=== PATIENT | female | born 1985 | race Caucasian/White ===

== ENCOUNTER 2024-03-21 10:54 | Emergency (ER) | payer SELFPAY ==
--- OUTSIDE RECORDS SUMMARY | 2024-03-21 10:57 | XMS REPORT | Continuity of Care Document ---
Author Name Unknown Address [address] [facility] [address] [place] [address] [facility] thconnect Address [address] [facility] [place] [address] Care Team Providers Care Cartridge Filler Name Role Phone PCP, PATIENT DOES NOT HAVE A Primary Care Physic taz Unavailable AZIZA MOJICA Attending Clinician Unavailab Aziza Hodge DO Attending Clinician AZIZA MOJICA Admitting Clinician Gail nielson Allergies, Adverse Reactions, Alerts Allergy Name Allergy Type Status Severity Reaction(s) Onset Date Inactive Date Treating Clinician Comments Source NO KNOWN ALLERGIE S Drug Class Active [facility] Social History Social Habit Start Date Stop Date Quantity Comments Source Sexual orientation U [facility] Sex Assigned At 1985 00:00:00 1985 00:00:[address] [facility] Smoking Status Start Date Stop Date Source Tobacco smoking consumption unknown [facility] Medications Ordered Medication Name Filled Medication Name Start Date Stop Date Current Medication? Ordering Clinician Indication Dosage Frequency Signature (SIG) Comments Components Source iopamidol (ISOVUE 370-500 mL) injection 81 mL 01-30 02:45: 00 01-30 02:45 :00 No [id number] 81mL 81 mL, Intravenou s, ONCE, 1 dose, On Fri01/29/23 at 2145, Routine [facility] ondansetron (ZOFRAN (PF)) injection 4 mg 01-30 00:45: 00 01-30 01:37 :00 No 4mg 4 mg, Slow IV Push, ONCE, 1 dose, On Fri01/29/23 at 1945, ANTONELLA [facility] morpHINE (4 mg/mL) injection 4 mg 01-30 00:45: 00 01-30 01:37 :00 No 4mg 4 mg, Slow IV Push, ONCE, 1 dose, On Fri01/29/23 at 1945, STAT [facility] Vital Signs Vital Name Observation Time Observation Value Comments S ource Systolic blood pressure 2023-01-30 03:00:00 119 mm[Hg] [facility] Diastolic blood pressure 2023-01-30 03:00:00 80 mm[Hg] [facility] Heart rate 2023-01-30 03:00:00 66 /min [facility] Respiratory rate 2023-01-30 03:00:00 16 /min [facility] Oxygen saturation in Arterial blood by Pulse oximetry 2023-01-30 03:00:00 98 /min [facility] Body temperature 2023-01-30 00:21:[address] [facility] Body height 2023-01-30 00:21:[address] [facility] Body weight 2023-01-30 00:21:[address] [facility] BMI 2023-01-30 00:21:00 27.44 kg/m2 [facility] Procedures Procedure Date / Time Performed Performing Clinicia n Source CT ABDOMEN PELVIS W CONTRAST 2023-01-30 01:54:[address] [facility] POCT TEST 2023-01-30 01:36:00 Sagrario Moj[address] [facility] LIPASE 2023-01-30 01:35:00 [facility]. METABOLIC PANEL ([id number]) 2023-01-30 01:35:[address] [facility] CBC WITH DIFF 2023-01-30 01:35:00 [facility] 2023-01-30 01:35:00 [facility] NOTICE OF PRIVACY PRACTICES 2023-01-29 23:51:38 Doctor Unassigned, Leith[place]Hatfield [facility] CONSENT/REFUSAL FOR DIAGNOSIS AND TREATMENT 2023-01-29 23:50:15 Doctor Unassigned, Leith[place] [facility] Encounters Start Date/Time End Date/Time Encounter Type Admission Type Attending Clinicians Care Facility Care Department Encounter ID Source 2023-01-29 19:23:00 2023-01-29 22:44:00 Emergency AZIZA GALLEGOS [facility] ERT [id number] [facility] 2023-01-29 19:23:00 2023-01-29 22:44:00 Emergency AZIZA GALLEGOS [facility] ERT [id number] [facility] 2023-01-29 19:23:00 2023-01-29 22:44:00 Emergency Aziza Mojica [facility] [id number] [facility] Results Test Description Test Time Test Comments Results Result Co mments Source SURGICAL PATHOLOGY [id number] 14:37:51* Test Item Value Reference Range Interpretation Comme nts DIAGNOSIS: (test code = 8200) (NOTE) A) Conization (L EEP) - EctocervixHigh grade squamous intraepithelial lesion (MERARI-3) - seemicroscopic. B) Conization (LEEP) - EndocervixHigh grade squamous intraepithelial lesion (MERARI-3) - seemicroscopic description.. MICROSCOPIC DESCRIPTION: (test code = 8210) (NOTE) A) This cervical conization demonstrates the transformation zone,and foci of high grade squamous intraepithelial lesion (CIN3).The dysplastic epithelium lacks maturation and is composed ofcells with crowded hyperchromatic nuclei. MERARI-3 extends intoendocervical glands and involves all tissue fragments. Focally,surface epithelium between MERARI-3 and the inked cauterizedendocervical margin has been denuded. Therefore, a clear margincannot be confirmed. No invasive carcinoma is identified. B) This specimen consists mostly of endocervical mucosa and showshigh grade squamous intraepithelial lesion (CIN3). The dysplasticepithelium lacks maturation and is composed of cells with crowdedhyperchromatic nuclei. Since most of the specimen consists ofendocervical tissue only, orientation cannot be certain. MERARI-3extends to one margin, but does not involve the blue inked tissueedge. No invasive carcinoma is identified. CLINICAL DATA: (test code = 8401) (NOTE) Not specified GROSS DESCRIPTION: (test code = 8220) (NOTE) A) SPECIMEN L ABELED: EctocervixSIZE/WEIGHT: 1.0x0.5x0.4 and 1.3x1.0x0.7 cm SPECIMEN COLOR: Shelton-redNUMBER OF TISSUE PIECES: 2SUBMITTED IN CASSETTE(S): [id number]: FormalinCOMMENTS:Irregularly shaped tissue fragment partially surfaced by pink-tanectocervix. Endocervical margin not grossly identified. Prior tosectioning margins inked blue. The larger tissue fragment has asuture on one edge designating 12. The larger fragment isconsistent with 11-1 o'clock cervix. The specimen is entirelysubmitted as follows: A1- smaller fragment, x3A2- larger fragment 11-12 o'clock, a6E6-akmkqi fragment 12-1 o'clock, x2 B) SPECIMEN LABELED: EndocervixSIZE/WEIGHT: 1.3x1.0x0.7 cm SPECIMEN COLOR: TanNUMBER OF TISSUE PIECES: 1SUBMITTED IN CASSETTE(S): [id number]: FormalinCOMMENTS:Cervical os grossly identified measuring 0.7 cm in diameter. Apparent deep endocervical margin inked blue. All remainingradial margins inked orange. Radially sectioned, entirelysubmitted as: B1 - quadrant 1 x2B2 - quadrant 2 x2B3 - quadrant 3 x2B4 - quadrant 4 x2 PATHOLOGIST: (test code = 8250) (NOTE) Roxanne Us M.D. Specimens processed and interpreted at [facility], [address] [place] [address], , CLIA: [id number] CPT: (test code = 8400) (NOTE) [id number] UNLESS O THERWISE INDICATED, ALL TESTING PERFORMED AT [facility] [address] [place] [address] CONTINUITY READER: MARA GOODWIN M.D. CLIA NUMBER [id number] [facility] [place]. [id number] SURGICAL PATHOLOGY [id number] 18:16:32* Test Item Value Reference Range Interpretation Comments DIAGNOSIS: (test code = 8200) (NOTE) A) Curettage - E ndocervixMildly atypical squamous epithelium with borderline changes/HPVeffect (see Microscopic Description). B) Biopsy - Cervix 11:00, 12:00Squamous intraepithelial lesion, grade indeterminate (seeComment). C) Biopsy - Cervix 10:00High-grade squamous intraepithelial lesion (MERARI 2). D) Biopsy - Cervix 4:00Benign squamous mucosa; no transformation zone present. E) Biopsy - Cervix 6:00Benign squamous mucosa; no transformation zone present. COMMENTS: (test code = 8205) (NOTE) (B)This difficul t to grade lesion is most likely HPV associated,and can be viewed as MERARI 1/MERARI 2. Some experts recommend thatpatients receive follow-up similar to a MERARI 2 diagnosis. The previously reported abnormal Pap (accession #[id number]) isreviewed. The atypical cells identified on the Pap slideessentially correlate with the biopsy findings. MICROSCOPIC DESCRIPTION: (test code = 8210) (NOTE) A) Benign endoce rvical epithelium is present. Squamousepithelium is also present with degenerative changes, however, there is nuclear enlargement and HPV effect. Fully developedhistologic features of CIN1 are not appreciated. This mayrepresent prominent reactive cellular changes or borderlinefeatures of early or resolving HPV effect. There is nodefinitive high grade lesion or malignancy. B) A minute fragment of cervical mucosa is present with HPVeffect, mildly crowded enlarged nuclei and increased nuclear tocytoplasmic ratios. There is some disorganization and lack ofmaturation, however, due to the limited nature and tangentialsectioning hinders definitive grading. C) Cervical mucosa shows disordered maturation with cytologicatypia and dysmaturational changes involving the basal andmid-portion of the squamous epithelium. No invasive carcinoma isidentified. D) The biopsy consists of benign squamous mucosa. Squamocolumnartransformation zone is not identified in the biopsy. There is noatypia, dysplasia, or malignancy. E) The biopsy consists of benign squamous mucosa. Squamocolumnartransformation zone is not identified in the biopsy. There is noatypia, dysplasia, or malignancy. CLINICAL DATA: (test code = 8401) (NOTE) Not specified GROSS DESCRIPTION: (test code = 8220) (NOTE) A) SPECIMEN LABE LED: EndocervixSIZE/WEIGHT: 1.7x1.0x0.1 cm AggregateSPECIMEN COLOR: TanNUMBER OF TISSUE PIECES: multipleSUBMITTED IN CASSETTE(S): [id number]: FormalinCOMMENTS:Mostly mucus. Filtered and entirely submitted. B) SPECIMEN LABELED: Cervix 11:00, 12:00SIZE/WEIGHT: 0.2x0.2x0.1 cm AggregateSPECIMEN COLOR: TanNUMBER OF TISSUE PIECES: multipleSUBMITTED IN CASSETTE(S): [id number]: FormalinCOMMENTS:Irregularly shaped tissue fragments. Filtered and entirelysubmitted. C) SPECIMEN LABELED: Cervix 10:00SIZE/WEIGHT: 0.4x0.3x0.1 cm SPECIMEN COLOR: TanNUMBER OF TISSUE PIECES: 1SUBMITTED IN CASSETTE(S): [id number]: FormalinCOMMENTS:Entirely submitted intact. D) SPECIMEN LABELED: Cervix 4:00SIZE/WEIGHT: 0.2x0.1x0.1 cm SPECIMEN COLOR: TanNUMBER OF TISSUE PIECES: 1SUBMITTED IN CASSETTE(S): [id number]: FormalinCOMMENTS:Entirely submitted intact. E) SPECIMEN LABELED: Cervix 6:00SIZE/WEIGHT: 0.4x0.3x0.1 cm SPECIMEN COLOR: TanNUMBER OF TISSUE PIECES: 1SUBMITTED IN CASSETTE(S): [id number]: FormalinCOMMENTS:Entirely submitted intact. PATHOLOGIST: (test code = 8250) (NOTE) Dariel Amor M.D., Board-certified in Anatomic and ClinicalPathology and Dermatopathology Specimens processed and interpreted at [facility], [address] [place] [address], , CLIA: [id number] CPT: (test code = 8400) (NOTE) [id number] UNLESS OTHERWISE INDICATED, ALL TESTING PERFORMED AT [facility] [address] [place] [address] CONTINUITY READER: MARA GOODWIN M.D. CLIA NUMBER [id number] [facility] [place]. [id number] COMP. METABOLIC PANEL (92730)2023-01-30 02:28:01* Test Item Value Reference Range Interpretation Comme nts NA (test code = 0816895565) 139 mmol/L 135-145 K (test code = 7697269500) 3.9 mmol/L 3.5-5.0 CL (test code = 0496600805) 105 mmol/L 98-108 CO2 TOTAL (test code = 3876513477) 24 mmol/L 23-31 AGAP (test code = 7464386567) 10 2-16 BUN (test code = 7929515901) 10 mg/dL 7-23 GLUCOSE (test code = 3753452877) 91 mg/dL 70-110 CREATININE (test code = 9556837045) 0.96 mg/dL 0.50-1.04 TOTAL BILI (test code = 6741539063) 0.5 mg/dL 0.1-1.1 CALCIUM (test code = 6142435976) 9.0 mg/dL 8.6-10.6 T PROTEIN (test code = 3987126506) 8.1 g/dL 6.3-8.2 ALBUMIN (test code = 3744474665) 4.6 g/dL 3.5-5.0 ALK PHOS (test code = 1122190126) 73 U/L 34-122 ALTv (test code = 1742-6) 24 U/L 5-35 AST(SGOT) (test code = 0840859489) 25 U/L 13-40 eGFR (test code = 3919993417) 66.1 mL/min/1.73m2 BELIA (test code = BELIA) Association of Glomerular Filtration Rate (GFR) and Staging of Kidney Disease* + + +- +| GFR (mL/min/1.73 m2) ?| With Kidney Damage ?| ?Without Kidney Damage+ ------+ ----+ ------+| ?>90 ?| ?Stage one ?| ? Normal ?+ -+ + -+| ?60-89 ?| ?Stage two ?| ? Decreased GFR ? + + +- +| ?30-59 ?| ?Stage three ?| ? Stage three ? + + +- +| ?15-29 ?| ?Stage four ? | ? Stage four ?+ -+ + -+| ?<15 (or dialysis) ? ?| ?Stage five ? | ? Stage five ?+ -+ + -+ *Each stage assumes the associated GFR level has been in effect for at least three months. ?Stages 1 to 5, with or without kidney disease, indicate chronic kidney disease. Notes: Determination of stages one and two (with eGFR >59mL/min/1.73 m2) requires estimation of kidney damage for at least three months as defined by structural or functional abnormalities of the kidney, manifested by either:Pathological abnormalities or Markers of kidney damage (including abnormalities in the composition of the blood or urine or abnormalities in imaging tests). [facility] 02:27:41* Test Item Value Reference Range Interpretation Comme nts LIPASE (test code = 5755246952) 88 U/L 0-220 Lab Interpretation (test cod e = 73083-1) Normal [facility] WITH [id number] 02:13:20* Test Item Value Reference Range Interpretation Comme nts WBC (test code = 6690-2) 6.15 See_Comment [Automated [employer]] The system which generated this result transmitted reference range: 4.30 - 11.10 10*3/?L. The reference range was not used to interpret this result as normal/abnormal. RBC (test code = 789-8) 4.47 See_Comment [Automated [employer]] The system which generated this result transmitted reference range: 3.93 - 5.25 10*6/?L. The reference range was not used to interpret this result as normal/abnormal. HGB (test code = 718-7) 14.4 g/dL 11.6-15.0 HCT (test code = 4544-3) 41.2 % 35.7-45.2 MCV (test code = 787-2) 92.2 fL 80.6-95.5 MCH (test code = 785-6) 32.2 pg 25.9-32.8 MCHC (test code = 786-4) 35.0 g/dL 31.6-35.1 RDW-SD (test code = 19300-2) 39.2 fL 39.0-49.9 RDW-CV (test code = 788-0) 11.6 % 12.0-15.5 L PLT (test code = 777-3) 349 See_Comment [Automated [employer]] The system which generated this result transmitted reference range: 166 - 358 10*3/?L. The reference range was not used to interpret this result as normal/abnormal. MPV (test code = 58800-0) 10.5 fL 9.5-12.9 NRBC/100 WBC (test code = 9812416033) 0.0 See_Comment [Automated me ssage] The system which generated this result transmitted reference range: 0.0 - 10.0 /100 WBCs. The reference range was not used to interpret this result as normal/abnormal. NRBC x10^3 (test code = 9050677977) See_Comment [Automated messa ge] The system which generated this result transmitted reference range: 10*3/?L. The reference range was not used to interpret this result as normal/abnormal. GRAN MAT (NEUT) % (test code = 770-8) 65.3 % IMM GRAN % (test code = 7785270618) 0.30 % LYMPH % (test code = 736-9) 23.9 % MONO % (test code = 5905-5) 8.9 % EOS % (test code = 713-8) 0.8 % BASO % (test code = 706-2) 0.8 % GRAN MAT x10^3(ANC) (test code = 5252842267) 4.01 10*3/uL 1.88-7.09 IMM GRAN x10^3 (test code = 4541012419) 0.00-0.06 LYMPH x10^3 (test code = 731-0) 1.47 10*3/uL 1.32-3.29 MONO x10^3 (test code = 742-7) 0.55 10*3/uL 0.33-0.92 EOS x10^3 (test code = 711-2) 0.05 10*3/uL 0.03-0.39 BASO x10^3 (test code = 704-7) 0.05 10*3/uL 0.01-0.07 Lab Interpretation (test code = 99914-7) Abnormal [facility] [id number] 01:36:00* Test Item Value Reference Range Interpretation Comme nts POCT PREG (test code = 1605) Negative On board controls acceptable with C Line (test code = 3574) Yes POCT PREG LOT # (test code = 3575) [id number] POCT PREG TEST DATE ( test code = 3576) 05/14/2024 Lab Interpretation (test cod e = 86980-1) Normal [facility] TEST, THINPREP, [id number] 23:11:55 * Test Item Value Reference Range Interpretation Comments SOURCE: (test code = 8001) Cervical/Endoc ervical SLIDES: (test code = 8011) 2 LMP: (test code = 8021) 12/10/2022 SPECIMEN ADEQUACY: (test code = 21980) (NOTE) Satisfactory for evaluation. Endocervical cells/transformation zone component present. INTERPRETATION: (test code = 42540) ASC H/EPITH. ABNORMALITY; SEE BELOW A -- ---- EPITHELIAL CELL ABNORMALITY Atypical squamous cells, cannot exclude HSIL (ASC-H) ---- OTHER COMMENTS: (test code = 8081) (NOTE) Background ma terial consistent with lubricant is present, whichinterferes with specimen processing.Interpreted using an alternate method of processing. This testwas developed and its performance characteristics determined [email or web address] It has not been cleared orapproved by the FDA. The laboratory is regulated under CLIA asqualified to perform high-complexity testing. This test is usedfor clinical purposes. It should not be regarded asinvestigational or for research. DYED RAW STOCK BLOWER FEEDER: (test code = 8101) AASHISH Fischer(ASCP)I AC QC TECHNOLOGIST: (test code = 8111) Brayden EscobarSCT( CP),IAC PATHOLOGIST INTERPRETATION BY: (test code = 8122) Alaina Maria M.D. LOCATION: (test code = 82770) (NOTE) Specimens proces sed and interpreted at [facility], [address] [place], [place] [address], , CLIA: [id number] CPT: (test code = 8140) (NOTE) 73133, 94937 UNL ESS OTHERWISE INDICATED, COMPUTER AIDED AND DYED RAW STOCK BLOWER FEEDER SCREENING PERFORMED. The Pap test is a screening test with an inherent, but low probability of error. Your patient should be reminded to consult you immediately if she experiences any suspicious signs or symptoms, regardless of her Pap test result. An alternate report format containing images or consolidated prior Pap history is available as applicable. HPV HIGH RISK WITH GENOTYPE, [id number] 17:27:32* Test Item Value Reference Range Interpretation Comme nts HPV HIGH RISK INTERP (test code = 71191) POSITIVE NEGATIVE A HPV 16 (test code = 21040) POSITIVE A HPV 18 (test code = 36410) NEGATIVE HPV, HR, OTHER GENOTYPES (test code = 02621) NEGATIVE Testing methodol ogy is real-time PCR utilizing hydrolysis probes with the Wendi Calvin 4800 system. The test individually detects genotypes 16 and 18, as well as the other 12 high risk types (31,33,35,39,45,51,52,56 ,58,59,66,68). The expected result is negative. A negative result does not rule out the presence of HPV not included in the genotype set, a low level of infection or specimen sampling error. UNLESS OTHERWISE INDICATED, ALL TESTING PERFORMED AT [facility]. [address] [place] [address] CONTINUITY READER: MARA GOODWIN M.D. CLIA NUMBER [id number] [facility]. [id number] VAGINAL PATHOGENS DNA [id number] 14:39:28* Test Item Value Reference Range Interpretation Comme nts YARI SPECIES (test code = 45402) NEGATIVE NEGATIVE G. VAGINALIS (test code = 09070) NEGATIVE NEGATIVE T. VAGINALIS (test code = 15985) NEGATIVE NEGATIVE Note: The [facility] ir VPIII Microbial Identification Testis a DNA probe test intended for use in the detectionand identification of Yari species, Gardnerellavaginalis and Trichomonas vaginalis nucleic acid. UNLESS OTHERWISE INDICATED, ALL TESTING PERFORMED AT [facility] [address] [place] [address] CONTINUITY READER: MARA GOODWIN M.D. [place] NUMBER [id number] [facility] [place]. [id number] COMPREHENSIVE METABOLIC [id number] 04:10:37* Test Item Value Reference Range Interpretation Comme nts GLUCOSE (test code = 2217) 106 MG/DL 70-99 H BUN (test code = 2208) 14 MG/DL 6-20 CREATININE (test code = 2214) 1.31 MG/DL 0.60-1.30 H eGFR (2020 CKD-EPI) (test code = 31837) 54 ML/MIN/1.73 >60 L The NKF-ASN Taskforce recommends use of Cystatin C to confirm eGFR inadults at risk for CKD. [facility] offers eGFR with Cystatin C-Creatinineusing the 2020 CKD-EPI eGFR_creat-cystat equation (order code 3057) toincrease the accuracy of estimated GFR. For more information, contactyour account group supervisor or see announcement [email or web address] CALC BUN/CREAT (test code = 2235) 11 RATIO 6-28 SODIUM (test code = 2231) 142 MEQ/L 133-146 POTASSIUM (test code = 2228) 4.0 MEQ/L 3.5-5.4 CHLORIDE (test code = 2215) 105 MEQ/L 95-107 CARBON DIOXIDE (test code = 2206) 23 MEQ/L 19-31 CALCIUM (test code = 2209) 9.8 MG/DL 8.5-10.5 PROTEIN, TOTAL (test code = 2229) 7.5 G/DL 6.1-8.3 ALBUMIN (test code = 2201) 4.8 G/DL 3.5-5.2 CALC GLOBULIN (test code = 2240) 2.7 G/DL 1.9-3.7 CALC A/G RATIO (test code = 2234) 1.8 RATIO 1.0-2.6 BILIRUBIN, TOTAL (test code = 2207) <0.2 MG/DL See_Comment [Automated me ssage] The system which generated this result transmitted reference range: <=1.2. The reference range was not used to interpret this result as normal/abnormal. ALKALINE PHOSPHATASE (test code = 2204) 76 U/L 40-114 AST (test code = 2218) 20 U/L 9-40 ALT (test code = 2219) 17 U/L 5-40 LIPID [id number] 04:10:37* Test Item Value Reference Range Interpretation Comme nts CHOLESTEROL (test code = 2210) 210 MG/DL <200 H TRIGLYCERIDES (test code = 2232) 160 MG/DL <150 H HDL CHOLESTEROL (test code = 2220) 56 MG/DL >39 CALC LDL CHOL (test code = 2237) 126 MG/DL <100 H NOTE: CALCULATED LDL IS BASED ON DULCE-MONDRAGON METHOD WHICHINCLUDES ADJUSTABLE TRIGLYCERIDE:VLDL CHOLESTEROL RATIO.THIS FACTOR VARIES BY MEASURED TRIGLYCERIDE AND NON-HDLCHOLESTEROL CONCENTRATIONS WITH INCREASED CALCULATED LDL SEENIN HIGHER TRIGLYCERIDE OR LOWER NON-HDL SPECIMENS. FOR MOREINFORMATION, SEE CLIENT ANNOUNCEMENT AT [email or web address] RISK RATIO LDL/HDL (test code = 2238) 2.25 RATIO <3.22 HEMOGLOBIN [id number] 03:28:36* Test Item Value Reference Range Interpretation Comme nts HEMOGLOBIN A1c (test code = 76335) 4.9 % 4.2-5.6 CBC W/AUTO DIFF WITH [id number] 02:19:23* Test Item Value Reference Range Interpretation Comme nts WBC (test code = 1001) 6.1 K/UL 3.5-11.0 RBC (test code = 1002) 4.20 M/UL 3.80-5.40 HEMOGLOBIN (test code = 1003) 13.7 G/DL 11.5-15.5 HEMATOCRIT (test code = 1004) 38.6 % 34.0-45.0 MCV (test code = 1005) 91.9 fL 80.0-99.0 MCH (test code = 1006) 32.6 PG 25.0-33.0 MCHC (test code = 1007) 35.5 G/DL 31.0-36.0 RDW (test code = 1038) 11.7 % 11.5-15.0 NEUTROPHILS (test code = 1008) 67.4 % LYMPHOCYTES (test code = 1010) 20.8 % MONOCYTES (test code = 1011) 10.2 % EOSINOPHILS (test code = 1012) 0.7 % BASOPHILS (test code = 1013) 0.7 % IMMATURE GRANULOCYTES (test code = 1036) 0.2 % NUCLEATED RBCS (test code = 1065) 0.0 /100 WBC'S See_Comment [Automated messa ge] The system which generated this result transmitted reference range: 0.0. The reference range was not used to interpret this result as normal/abnormal. PLATELET COUNT (test code = 1015) 363 K/UL 130-400 ABSOLUTE NEUTROPHILS (test code = 1066) 4.10 K/UL 1.50-7.50 ABSOLUTE LYMPHOCYTES (test code = 1067) 1.26 K/UL 1.00-4.00 ABSOLUTE MONOCYTES (test code = 1068) 0.62 K/UL 0.20-1.00 ABSOLUTE EOSINOPHILS (test code = 1040) 0.04 K/UL 0.00-0.50 ABSOLUTE BASOPHILS (test code = 1069) 0.04 K/UL 0.00-0.20 ABS IMMATURE GRANULOCYTES (test code = 1020) 0.01 K/UL 0.00-0.10 ABS NUCLEATED RBCS (test code = 48280) 0.00 K/UL 0.00-0.11"
[2024-03-21] MEDS ORDERED: IBUPROFEN 200 MG TAB PO ONE (11:37)
[2024-03-21] MEDS ORDERED: HYDROCODONE/APAP 5/325 MG TAB ONE (11:37)
[2024-03-21] MEDS ORDERED: IBUPROFEN 400 MG TAB ONE (11:38)
--- NOTE | 2024-03-21 12:05 | RAD REPORT ---
EXAMINATION: XR Foot Right 3 View CLINICAL INDICATION: Female, 38 years old. [facility] MAIN PAIN Bed: TECHNIQUE: 3 view radiographs of the right foot were obtained. COMPARISON: No prior exam. FINDINGS: No evidence of fracture or dislocation. Normal alignment. No evidence of arthropathy or oth er focal bone lesion. Soft tissues are unremarkable. Small calcaneal spur. He. No significant degenerative changes. IMPRESSION: No acute osseous abnormalities.
--- NOTE | 2024-03-21 12:06 | RAD REPORT ---
EXAMINATION: XR Ankle Right 3 View CLINICAL INDICATION: Female, 38 years old. [facility] MAIN PAIN Bed: TECHNIQUE: 3 view radiographs of the right ankle were obtained. COMPARISON: No prior exam. FINDINGS: No bone or joint abnormality seen. Small calcaneal spur. No suspicious soft tissue abnormality. IMPRESSION: No acute osseous abnormalities.
--- NOTE | 2024-03-21 12:25 | EDPHYS ---
Physician Documentation [facility] Name: Елена Harris Age: 38 yrs Sex: Female : 1985 Arrival Date: 03/21/2024 Time: 10:54 Bed 13 Private MD: ED Physician Cameron Black HPI: 03/21 12:23 This 38 yrs old Female presents to ER via Wheelchair with complaints of Ankle Injury. kb 12:23 Pt is a 38 year old female who presents for ankle and foot pain that started after a kb fall last night. States she twisted her ankle while walking. Denies any other injuries. . Historical: - Allergies: 11:07 No Known Allergies; aa5 - PMHx: 11:07 Asthma; aa5 - PSHx: 11:07 tubal ligation (Asthma); aa5 - Immunization history:: Adult Immunizations unknown. - Infectious Disease History:: Denies. - Social history:: Smoking status: Patient denies any tobacco usage or history of. ROS: 12:22 Constitutional: As per HPI kb Exam: 12:22 Constitutional: This is a well developed, well nourished patient who is awake, alert, kb and in no acute distress. Head/Face: Normocephalic, atraumatic. ENT: Moist Mucous membranes Cardiovascular: Regular rate Respiratory: Respirations even and unlabored. No increased work of breathing. Talking in full sentences Skin: Warm, dry with normal turgor. Normal color. Neuro: Awake and alert, GCS 15, oriented to person, place, time, and situation. 12:22 Musculoskeletal/extremity: Extremities: grossly normal except: noted in the anterior aspect of right ankle and dorsum of right foot: pain, tenderness, ROM: intact in all extremities, Circulation is intact in all extremities. Sensation intact. Weight bearing: can bear weight with assistance only, Vital Signs: 11:08 BP 142 / 83; Pulse 110; Resp 18 S; Temp 97.5(TE); Pulse Ox 100% on R/A; Weight 67.13 kg aa5 (R); Height 5 ft. 2 in. (R); 11:08 Body Mass Index 27.07 (67.13 kg, 157.48 cm) aa5 MDM: 10:57 Medical Screening Exam initiated kb 12:22 Differential diagnosis: fracture, sprain. Data reviewed: vital signs, nurses notes. kb Historians other than the Patient: Spouse/Significant Other: spouse. Counseling: I had a detailed discussion with the patient and/or guardian regarding the historical points, exam findings, and any diagnostic results supporting the discharge/admit diagnosis, radiology results, the need for outpatient follow up, a orthopedic surgeon, to return to the emergency department if symptoms worsen or persist or if there are any questions or concerns that arise at home. 03/21 11:03 Order name: Ankle Right 3 View XRAY; Complete Time: 12:12 kb 03/21 11:03 Order name: Foot Right 3 View XRAY; Complete Time: 12:12 kb 03/21 12:23 Order name: Romel Wrap; Complete Time: 12:49 kb 03/21 12:23 Order name: Crutches; Complete Time: 12:49 kb Administered Medications: 11:43 Drug: HYDROcodone-acetaminophen PO 5 mg-325 mg 1 tabs PO once Route: PO; aa5 12:45 Follow up: Response: No adverse reaction aa5 11:43 Drug: Ibuprofen PO 600 mg PO once Route: PO; aa5 12:45 Follow up: Response: No adverse reaction aa5 Disposition Summary: 03/21/24 12:24 Discharge Ordered Notes: Location: Home kb Condition: Stable kb Diagnosis - Sprain of ankle kb Followup: kb - With: Emergency Department - When: As needed - Reason: Worsening of condition Followup: kb - With: Private Physician - When: 2 - 3 days - Reason: Recheck today's complaints, Continuance of care, Re-evaluation by your physician Discharge Instructions: - Discharge Summary Sheet kb - Ankle Sprain, [id number] kb Forms: - Medication Reconciliation Form kb - Antibiotic Education kb - Prescription Opioid Use kb - Patient Portal Instructions kb - Leadership Thank You Letter kb Prescriptions: - Diclofenac Sodium 75 mg Oral tablet, delayed release (enteric coated) - take 1 tablet ORAL route 2 times per day As needed; 30 tablet; Refills: 0, kb Product Selection Permitted Signatures: Dispatcher [employer] Melany Han, SO-C SO-Ashley Lindquist, RN RN aa5 Corrections: (The following items were deleted from the chart) 11: 11:04 Ankle Right 3 View+RAD.RAD.BRZ ordered. ABBYMS EDMS 11:04 11:04 Foot Right 3 View+RAD.RAD.BRZ ordered. EDMS EDMS
--- NOTE | 2024-03-21 12:25 | ER ---
Nurse's Notes [facility] Name: Елена Harris Age: 38 yrs Sex: Female : 1985 Arrival Date: 03/21/2024 Time: 10:54 Bed 13 Private MD: Diagnosis: Sprain of ankle Presentation: 03/21 11:08 Chief complaint: Patient states: running and stepped off a curve twisting right ankle aa5 last night. Coronavirus screen: At this time, the client does not indicate any symptoms associated with coronavirus-19. Ebola Screen: Patient denies travel to an Ebola-affected area in the 21 days before illness onset. Initial Sepsis Screen: Does the patient meet any 2 criteria? No. Patient's initial sepsis screen is negative. Does the patient have a suspected source of infection? No. Patient's initial sepsis screen is negative. Risk Assessment: Do you want to hurt yourself or someone else? Patient reports no desire to harm self or others. Onset of symptoms was March 20, 2024. 11:08 Acuity: JYOTI 4 aa5 11:08 Method Of Arrival: Wheelchair aa5 Historical: - Allergies: 11:07 No Known Allergies; aa5 - PMHx: 11:07 Asthma; aa5 - PSHx: 11:07 tubal ligation (Asthma); aa5 - Immunization history:: Adult Immunizations unknown. - Infectious Disease History:: Denies. - Social history:: Smoking status: Patient denies any tobacco usage or history of. Screenin:10 [facility] ED Fall Risk Assessment (Adult) History of falling in the last 3 months, aa5 including since admission Yes- single mechanical fall (1 pt) Confusion or Disorientation No (0 pts) Intoxicated or Sedated No (0 pts) Impaired Gait No (0 pts) Mobility Assist Device Used No (0 pt) Altered Elimination No (0 pt) Score/Fall Risk Level 0 - 2 = Low Risk Oriented to surroundings, Maintained a safe environment, Educated pt \T\ family on fall prevention, incl call for assistance when getting out of bed. Abuse screen: Denies threats or abuse. Nutritional screening: No deficits noted. Tuberculosis screening: No symptoms or risk factors identified. Assessment: 11:10 General: Appears uncomfortable, Behavior is calm, cooperative. Pain: Complains of pain aa5 in dorsum of right foot and right ankle. Neuro: Level of Consciousness is awake, alert, obeys commands, Oriented to person, place, time, situation. Cardiovascular: Patient's skin is warm and dry. Respiratory: Airway is patent Respiratory effort is even, unlabored, Respiratory pattern is regular, symmetrical. GI: No signs and/or symptoms were reported involving the gastrointestinal system. : No signs and/or symptoms were reported regarding the genitourinary system. EENT: No signs and/or symptoms were reported regarding the EENT system. Derm: Skin is pink, warm \T\ dry. Musculoskeletal: Reports pain in right ankle and right foot. 12:45 Reassessment: Patient is alert, oriented x 3, equal unlabored respirations, skin aa5 warm/dry/pink. Vital Signs: 11:08 BP 142 / 83; Pulse 110; Resp 18 S; Temp 97.5(TE); Pulse Ox 100% on R/A; Weight 67.13 kg aa5 (R); Height 5 ft. 2 in. (R); 11:08 Body Mass Index 27.07 (67.13 kg, 157.48 cm) aa5 ED Course: 10:56 Patient arrived in ED. mg5 10:57 [facility] Good[facility]C [facility] kb 10:57 Cameron Black MD is Attending Physician. kb 11:06 Arm band placed on. aa5 11:06 Patient has correct armband on for positive identification. Bed in low position. Call aa5 light in reach. Side rails up X 1. Adult w/ patient. 11:09 Triage completed. aa5 11:09 Ashley Asher, RN is Primary Nurse. aa5 11:27 Ankle Right 3 View XRAY In Process Unspecified. EDMS 11:27 Foot Right 3 View XRAY In Process Unspecified. EDMS 12:26 No provider procedures requiring assistance completed. aa5 12:45 Patient did not have IV access during this emergency room visit. aa5 12:45 Crutch training done. Romel wrap to right ankle. aa5 Administered Medications: 11:43 Drug: HYDROcodone-acetaminophen PO 5 mg-325 mg 1 tabs PO once Route: PO; aa5 12:45 Follow up: Response: No adverse reaction aa5 11:43 Drug: Ibuprofen PO 600 mg PO once Route: PO; aa5 12:45 Follow up: Response: No adverse reaction aa5 Medication: 12:24 VIS not applicable for this client. aa5 Outcome: 12:24 Discharge ordered by . kallie 12:45 Discharged to home via wheelchair, with crutches, with significant other, aa5 12:45 Condition: stable 12:45 Discharge instructions given to patient, significant other, Instructed on discharge instructions, follow up and referral plans. medication usage, Demonstrated understanding of instructions, follow-up care, medications, Prescriptions given X 1, 12:49 Patient left the ED. aa5 Signatures: Dispatcher [employer] EDMS Melany Goodwin, SKIN CARE CONSULTANT-C SO-Ashley Lindquist, RN RN aa5 Amada Ratliff mg5
[2024-03-21 12:53] VITALS: BP 142/83; TEMP 97.5; O2SAT 100
== END 2024-03-21 12:49 | disposition home or self-care (01) ==
LOC: ER 10:54
DX: S93.401A Sprain of unspecified ligament of right ankle, initial encounter (principal)
CPT/HCPCS: 99283

== ENCOUNTER 2025-03-06 03:41 | Emergency (ER) | payer SELFPAY ==
[2025-03-06] MEDS ORDERED: NA CHLORIDE 0.9% 1,000 ML ONE (04:00)
[2025-03-06] MEDS ORDERED: ONDANSETRON 4 MG/2 ML VIAL ONE (04:00)
[2025-03-06 04:19] LABS: Absolute Lymphocytes (CBC) 0.6 K/uL (0.7-4.9); Hematocrit 39.4 % (36.0-45.0); Hemoglobin 13.6 g/dL (12.0-15.0); MCH 31.5 pg (27.0-35.0); MCHC 34.5 g/dL (32.0-36.0); MCV 91.4 fL (80-100); MPV 8.6 fL (7.6-11.3); Nucleated RBC Absolute Count 0.0 (0-0); Nucleated Red Blood Cells % 0.0 % (0-0); RBC Red Blood Cell Count 4.32 M/uL (3.86-4.86); White Blood Count 6.40 thou/uL (4.3-10.9)
[2025-03-06 04:24] LABS: Sqamous Epithelial <5 /HPF (None Seen); Urine Crystals Unidentified Few /HPF (None Seen); Urine Culture Reflex Order REFLEXED; Urine Microscopic Reflex YN ORDER UMIC; Urine WBC Clump Occasional /HPF (None Seen)
[2025-03-06 04:33] LABS: METHAMPHETAM NEGATIVE (NEGATIVE); THC Cannibis NEGATIVE (NEGATIVE)
[2025-03-06 04:36] LABS: ALT/SGPT 42.0 U/L (13-56); AST/SGOT 19.0 U/L (15-37); Albumin 3.9 g/dL (3.4-5.0); Albumin/Globulin Ratio 1.1 (1.1-1.8); Alkaline Phosphatase 84.0 U/L (45-117); Anion Gap 11.6 mEq/L (5.0-15.0); BUN Blood Urea Nitrogen 13.0 mg/dL (7-18); Globulin 3.7 g/dL (2.3-3.5); Glucose Level 115.0 mg/dL (74-106); Lipase 24.0 U/L (13-75); Potassium 3.6 mEq/L (3.5-5.1)
[2025-03-06] MEDS ORDERED: PROMETHAZINE INJ 25 MG/ML AMP ONE (04:38)
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
--- NOTE | 2025-03-06 04:58 | ER ---
Nurse's Notes [facility] Name: Елена Harris Age: 39 yrs Sex: Female : 1985 Arrival Date: 03/06/2025 Time: 03:41 Bed 7 Private MD: Diagnosis: Vomiting, abdominal pain, UTI Presentation: 03/06 04:00 Chief complaint: Patient states: Been throwing up for an hour and a half straight. Had vc1 a couple of drinks and immediately felt funny afterwards. I didn't drink that much. Coronavirus screen: Client denies travel out of the [place] in the last 14 days. At this time, the client does not indicate any symptoms associated with coronavirus-19. Ebola Screen: Patient negative for fever greater than or equal to 101.5 degrees Fahrenheit, and additional compatible Ebola Virus Disease symptoms Patient denies exposure to infectious person. Patient denies travel to an Ebola-affected area in the 21 days before illness onset. No symptoms or risks identified at this time. Initial Sepsis Screen: Does the patient meet any 2 criteria? No. Patient's initial sepsis screen is negative. Does the patient have a suspected source of infection? No. Patient's initial sepsis screen is negative. Risk Assessment: Do you want to hurt yourself or someone else? Patient reports no desire to harm self or others. Onset of symptoms was March 06, 2025 at 02:30. Care prior to arrival: None. Activity prior to arrival: vomiting. 04:00 Method Of Arrival: Ambulatory vc1 04:00 Acuity: JYOTI 3 vc1 Triage Assessment: 04:09 General: Appears in no apparent distress. uncomfortable, well groomed, well developed, vc1 Behavior is calm, cooperative, appropriate for age. Pain: Complains of pain in epigastric area and umbilical area Pain does not radiate. Pain currently is 6 out of 10 on a pain scale. at worst was 8 out of 10 on a pain scale. EENT: No deficits noted. No signs and/or symptoms were reported regarding the EENT system. Neuro: Level of Consciousness is awake, alert, obeys commands, Oriented to person, place, time, situation, Appropriate for age. Cardiovascular: Capillary refill < 3 seconds Patient's skin is warm and dry. Respiratory: Airway is patent Respiratory effort is even, unlabored, Respiratory pattern is regular, symmetrical. GI: Abdomen is flat, non-distended, Reports upper abdominal pain, epigastric pain, vomiting. : No deficits noted. No signs and/or symptoms were reported regarding the genitourinary system. Derm: Skin is intact, is healthy with good turgor, Skin is dry, Skin is normal, Skin temperature is warm. Musculoskeletal: Circulation, motion, and sensation intact. Range of motion: intact in all extremities. 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 - Infectious Disease History:: Denies. - Social history:: Smoking status: Patient denies any tobacco usage or history of. Screenin:06 [facility] ED Fall Risk Assessment (Adult) History of falling in the last 3 months, vc1 including since admission No falls in past 3 months (0 pts) Confusion or Disorientation No (0 pts) Intoxicated or Sedated No (0 pts) Impaired Gait No (0 pts) Mobility Assist Device Used No (0 pt) Altered Elimination No (0 pt) Score/Fall Risk Level 0 - 2 = Low Risk Oriented to surroundings, Maintained a safe environment, Educated pt \T\ family on fall prevention, incl call for assistance when getting out of bed, Assessed \T\ reinforced patient's understanding of fall precautions, Hourly rounding (assess needs \T\ fall precautionary measures) done. Abuse screen: Denies threats or abuse. Nutritional screening: No deficits noted. Tuberculosis screening: No symptoms or risk factors identified. Assessment: 04:49 Reassessment: Patient appears in no apparent distress at this time. Patient and/or bm8 family updated on plan of care and expected duration. Pain level reassessed. Patient is alert, oriented x 3, equal unlabored respirations, skin warm/dry/pink. pt reporting that nausea is still very much. GI: Bowel sounds present X 4 quads. Abd is soft and non tender X 4 quads. Reports nausea. 05:02 Reassessment: awaiting pt fluids to be complete and then discharged. bm8 05:02 Reassessment: Patient appears in no apparent distress at this time. Patient and/or bm8 family updated on plan of care and expected duration. Pain level reassessed. Patient is alert, oriented x 3, equal unlabored respirations, skin warm/dry/pink. Patient denies pain at this time. Patient states feeling better. Patient states symptoms have improved. GI: Patient currently denies nausea, pain. Vital Signs: 04:00 BP 152 / 96; Pulse 97; Resp 18; Temp 98.1; Pulse Ox 98% ; Weight 61.23 kg; Height 5 ft. vc1 2 in. ; Pain 6/10; 04:41 BP 139 / 90; Pulse 103; Resp 18; Pulse Ox 98% ; cp4 04:00 Body Mass Index 24.69 (61.23 kg, 157.48 cm) vc1 04:00 Pain Scale: Adult vc1 [place] Coma Score: 04:49 Eye Response: spontaneous(4). Motor Response: obeys commands(6). Verbal Response: bm8 oriented(5). Total: 15. ED Course: 03:45 Patient arrived in ED. gm2 03:46 Roxanne Almendarez MD is Attending Physician. sp3 04:00 Bernadine Swan, MEHRDAD is Primary Nurse. vc1 04:03 No provider procedures requiring assistance completed. Initial lab(s) drawn, by grady portillo sent to lab. Inserted saline lock: 20 gauge in right antecubital area, using aseptic technique. Blood collected. Flushed with 10 mL NS. 04:05 Triage completed. vc1 04:06 Arm band placed on right wrist. vc1 04:07 Patient has correct armband on for positive identification. Bed in low position. Call vc1 light in reach. Provided Education on: Plan of care. Pulse ox on. NIBP on. 05:20 IV discontinued, intact, bleeding controlled, No redness/swelling at site. Pressure bm8 dressing applied. Administered Medications: 04:12 Drug: NS 0.9% IV 1000 ml IV at 1 bolus Per protocol; to be given as a bolus over 60 bm8 minutes Route: IV; Rate: 1 bolus; Site: right antecubital; 05:20 Follow up: Response: No adverse reaction; IV Status: Completed infusion bm8 04:13 Drug: Ondansetron IVP 4 mg IVP once; over 2 minutes Route: IVP; Site: right antecubital;bm8 04:48 Follow up: Response: No adverse reaction bm8 04:48 Drug: Promethazine IM 25 mg IM once Route: IM; Site: right deltoid; bm8 05:20 Follow up: Response: No adverse reaction bm8 Medication: 04:09 VIS not applicable for this client. vc1 Outcome: 04:58 Discharge ordered by . sp3 05:20 Discharged to home via wheelchair, with family, bm8 05:20 Condition: stable 05:20 Discharge instructions given to patient, family, Instructed on discharge instructions, follow up and referral plans. no drinking with medication, no driving heavy equipment, medication usage, safety practices, Demonstrated understanding of instructions, follow-up care, medications, Prescriptions given X 2, 05:21 Patient left the ED. bm8 Signatures: Roxanne Almendarez MD MD sp3 Bernadine Swan RN RN vc1 Radha Fuentes 4 Lisbeth Messina 2 Phil Wooten RN RN bm8
[2025-03-06 06:07] VITALS: TEMP 98.1; O2SAT 98
[2025-03-06 06:08] VITALS: BP 139/90
== END 2025-03-06 05:21 | disposition home or self-care (01) ==
LOC: ER 03:41
DX: N39.0 Urinary tract infection, site not specified (principal); R10.9 Unspecified abdominal pain; R11.2 Nausea with vomiting, unspecified
CPT/HCPCS: 36415; 80053; 80307; 81001; 81025; 83690; 85025; 87077; 87086; 87088; 87186; 96361; 96372; 96374; 99284; J2405; J2550; J7030